=== PATIENT | male | born 1980 | race Caucasian/White ===

== ENCOUNTER 2024-08-24 11:33 | Emergency (ER) | payer SELFPAY ==
[2024-08-24 11:34] VITALS: BP 135/89; PULSE 65; RESP 16; TEMP 36.6; O2SAT 99; BMI 24.0
--- NOTE | 2024-08-24 11:50 | EDS_ITS ---
HPI History of Present Illness Chief Complaint: Rash Detail of Chief Complaint: Rash Informant: patient Narrative Narrative: Patient presents with a rash that started 2 days ago. Patient states he was doing yard work and he thinks he may have gotten into some poison martina. The rash is pruritic and vesicular involving mostly his wrists and forearms but as well as his lower left abdomen and right lower extremity. Patient states that every year he seems to get into something and have similar rash that we usually response to prednisone. He denies recent illness. Denies new soaps or detergents or new medications. PFSH PFSH Home Medications ?Medication ?Instructions ?Recorded ?Last Taken ?Type No Known/Unobtainable [No Known 5 Unknown History Home Medications] prednisone 20 mg tablet 20 mg PO BID #10 tabs Unknown Rx Allergy/AdvReac Type Severity Reaction Status Date / Time No Known Allergies Allergy Verified 11/17/14 06:58 Social History Smoking Status: Current every day smoker ROS ROS ED Review of Systems ROS Unobtainable: other Constitutional Constitutional ED: Reports lethargy; Denies chills, fever(s), sweats or weight loss Eyes Eyes: Denies blurry vision, change in vision or diplopia ENT ENT ED: Denies rhinorrhea or sore throat Cardiovascular Cardiovascular: Denies chest pain, orthopnea or racing heartbeat Respiratory/Chest Respiratory/Chest: Denies cough, dyspnea, dyspnea on exertion, orthopnea or sputum Gastrointestinal Gastrointestinal: Denies abdominal pain, diarrhea, nausea or vomiting Genitourinary Genitourinary ED: Denies dysuria, hematuria or urinary frequency Musculoskeletal Musculoskeletal: Denies arthralgias, back pain, myalgias or neck pain Integumentary Reports rash; Denies abscess or Abrasions Neurologic Neurologic: Denies headache(s) or weakness Psychiatric Psychiatric: Denies anxiety, depression or suicidal thoughts Endocrine Endocrinology: Denies polydipsia, polyphagia or polyuria Hematologic/Lymphatic Hematologic/Lymphatic: Denies easy bleeding, easy bruising or lymphadenopathy Allergic/Immunologic Allergic/Immunologic ED: Denies mouth swelling, tongue swelling or urticaria EXAM Physical Exam Const Vital Signs: 08/24/24 11:34 Temperature 97.9 F Temperature Source Oral Pulse Rate 65 Respiratory Rate 16 Blood Pressure 135/89 H Blood Pressure Mean 104 Pulse Ox 99 Oxygen Delivery Method Room Air Positive well nourished and well developed General Appearance ED: well developed and NAD HEENT Reports TM's clear and moist mucous membranes normocephalic and atraumatic; Negative for trauma or tenderness Tympanic Membrane ED: Yes TM's clear Eyes PERRL and EOMs intact bilaterally General Eye ED: Negative for pale conjunctiva or scleral icterus Neck no lymphadenopathy, supple and no JVD General: Negative for tenderness Chest Wall inspection of chest normal and palpation of chest normal Chest: Negative for tenderness Resp normal respiratory effort and clear to auscultation bilaterally Effort and Inspection: Negative for respiratory distress or pain with movement Auscultation: Negative for rhonchi, wheezes or diminished lung sounds Cardio regular rate, regular rhythm, S1 normal heart sound, S2 normal heart sound and no murmurs Peripheral Pulses: pulses 2+ throughout GI normal to inspection, nondistended, normoactive bowel sounds, soft to palpation, non-tender, non-distended and no masses Back/Spine no CVA tenderness and no thoracic nor lumbar tenderness Extremity normal to inspection General Extremety ED: Negative for edema General Extremity: Negative for edema Neuro oriented x3, CN's II-XII intact bilaterally, no sensory deficits noted and gait normal Sensorium / Orientation: awake, alert, oriented to person, oriented to place and oriented to time Motor Exam: strength 5/5 throughout and strength abnormal Psych mental status grossly normal Skin no wounds Skin Narrative: Patient with a erythematous vesicular type rash that is spotty involving the right wrist volar aspect as well as the left wrist volar aspect. Also has some lesions on the dorsum of the left forearm and dorsum of the left hand. Similar type rash noted on his left lower abdomen and right anterior akhtar. Clinically consistent with a Nicole dermatitis. MDM MDM MDM Narrative Medical decision making narrative: Patient presents with rash involving upper extremities likely a contact Nicole dermatitis. Will start on prednisone give first dose in the emergency department. Will give referral to primary care physician on-call for no doc. Discharge Plan Triage Chief Complaint: Rash ED Provider: Leatha Lundberg Dx/Rx/DC Orders Instructions: ED Poison Martina or Poison Adrian Rash Prescriptions: New prednisone 20 mg tablet 20 mg PO BID Qty: 10 0RF No Action No Known Home Medications Primary Care Provider: Care Physician,No Primary Referrals: Beni Otero DO [Med Staff - Transmission Specialist] - 5-7 Days Print Language: [place]
[2024-08-24] MEDS: predniSONE 20 MG Tablet 40 MG PO (12:02)
[2024-08-24 12:05] VITALS: BP 135/89; PULSE 65; RESP 16; TEMP 36.6; O2SAT 99
== END 2024-08-24 12:05 | disposition home or self-care (01) ==
PROVIDERS: Emergency Provider Emergency Medicine; Visit Provider Emergency Medicine
DX: R21 Rash and other nonspecific skin eruption (principal); F17.200 Nicotine dependence, unspecified, uncomplicated
CPT/HCPCS: 99282